=== PATIENT | female | born 1955 | race Caucasian/White ===

== ENCOUNTER 2020-11-24 21:25 | Inpatient (IN) | payer MEDICARE, MEDICAID, SELFPAY ==
[2020-11-24 21:25] VITALS: BP 143/84; PULSE 109; RESP 15; TEMP 36.8; O2SAT 95; BMI 32.5
[2020-11-24 21:32] VITALS: BP 143/84; PULSE 107; RESP 18; TEMP 36.9; O2SAT 94
--- NOTE | 2020-11-24 22:13 | ED.RN ---
patient arrives to ED covered in dirt and possibly feces. Pt appears unwell, unbathed, and unable to take care of self. Pt lives with brother who is unable to take care of patient either. Pt has multiple open sores to b/l lower legs along with redness and swelling.
--- NOTE | 2020-11-24 22:18 | CT_ITS ---
EXAMINATION : Head CT w/out contrast HISTORY : confusion COMPARISON : None. TECHNIQUE : Multiple contiguous axial images were obtained from the skull base to the vertex without intravenous contrast. A radiation dose optimization technique was used for this scan. FINDINGS : The ventricles and sulci are normal in size. There is no evidence for acute intracranial hemorrhage, mass effect, or midline shift. There is no extra-axial fluid collection. There is normal austin-white differentiation, without CT evidence of acute ischemia or infarct. The skull base and calvarium are unremarkable. The orbits are unremarkable. The paranasal sinuses are clear. The mastoid air cells are well-aerated. The soft tissues are unremarkable. CT/Brain/Head without Contrast IMPRESSION: No acute intracranial abnormality. Electronically Signed: Mookie Mauricio MD at 23:17 EDT Tel , Service support ,
--- NOTE | 2020-11-24 22:19 | EKG12_ITS ---
Test Reason : DYSRHYTHMIA Blood Pressure : / mmHG Vent. Rate : 096 BPM Atrial Rate : 096 BPM P-R Int : 166 ms QRS Dur : 078 ms QT Int : 354 ms P-R-T Axes : 064 051 174 degrees QTc Int : 447 ms Sinus rhythm with Premature supraventricular complexes Septal infarct , age undetermined ST & T wave abnormality, consider inferior ischemia ST & T wave abnormality, consider anterolateral ischemia Abnormal ECG Confirmed by WARREN JAFFE, SUNNI ([id number]), purchasing expeditor SONY KIM ([id number]) on 11/29/2020 8:52:17 AM Referred By: VERONICA Confirmed By:SUNNI KELLEY MD
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
[2020-11-24 22:34] LABS: Absolute Lymphocyte Count 0.72 X10^3/uL (0.83-4.51); Absolute Neutrophil Count 6.2 X10^3/uL (2.0-7.7); Basophil# 0.04 X10^3/uL; Basophil% 0.5 % (0-1); Eosinophil# 0.03 X10^3/uL; Eosinophils% 0.4 % (0-5); Hematocrit 39.3 % (37-47); Hemoglobin 11.8 g/dL (12.0-15.0); Lymphocyte # 0.72 X10^3/ul (0.83-4.51); Lymphocyte % 9.4 % (19-41); Mean Corpuscular Hgb 28.1 pg (27.0-32.0); Mean Corpuscular Volume 93.6 fL (81-99); Mean Platelet Vol. 10.1 fl (6.2-12.0); Monocyte# 0.61 X10^3/uL; NRBC Flagged by Analyzer 0 % (0-5); Neutrophil # 6.24 X10^3/uL (2.7-7.7); Neutrophil % 81.3 % (47-70); Platelet Count 230 K/mm3 (150-450); RBC Distribution Width CV 16.7 % (11.6-14.6); RBC Distribution Width SD 56.4 fl (35.1-43.9); White Blood Count 7.7 K/mm3 (4.4-11.0)
[2020-11-24 22:40] VITALS: PULSE 97; RESP 24; RESP 26; O2SAT 92
[2020-11-24] MEDS: 0.9% Normal Saline 1,000 ML 1000 ML IV (22:40)
[2020-11-24] MEDS: Ipratropium/Albuterol Sulfate 3 ML AMPUL.NEB INHALATION (22:40)
[2020-11-24 22:55] LABS: ALB/GLOB Ratio 0.7 RATIO (0.9-2.4); AST(SGOT) 19 U/L (15-37); Alanine Aminotransfer ALT/SGPT 15 U/L (13-56); Albumin, Serum 2.9 g/dL (3.2-5.0); Alkaline Phosphatase 99 U/L (45-117); Anion Gap 9 (5-15); BUN 6 mg/dL (7-18); BUN/Creat Ratio 8.2 RATIO (10-20); Calcium,Total 8.7 mg/dL (8.5-10.1); Chloride 103 mmol/L (98-107); Creatinine, Serum 0.74 mg/dL (0.55-1.02); EST Glomerular Filtration Rate 84 mL/min (>60); Est Glom Filt Rate - Afr Amer 101 mL/min (>60); Estimated Creatinine Clearance 43.18 ml/min; Glucose 124 mg/dL (74-106); Protein, Total 6.9 g/dL (6.4-8.2); Sodium Level 139 mmol/L (136-145)
[2020-11-24 22:58] LABS: Troponin-I HS 75.2 pg/mL (3.0-53.7)
--- NOTE | 2020-11-24 23:12 | RAD_ITS ---
STUDY: X-RAY CHEST REASON FOR EXAM: Female, 65 years old. COPD TECHNIQUE: Single AP portable view of the chest. COMPARISON: None. FINDINGS: The lungs are clear and expanded. There is no demonstrated pleural abnormality. Normal size heart. Prior sternotomy. Normal mediastinum and grupo. Normal visualized pulmonary arteries. Normal visualized aortic arch and descending thoracic aorta. Normal visualized thoracic spine. Normal visualized ribs, clavicles, and shoulders. There is no demonstrated abnormality of the visualized soft tissue structures of the upper abdomen. RAD/Chest 1 View (Portable) IMPRESSION: Normal x-ray examination of the chest. Electronically Signed: Micaela Maradiaga MD at 23:46 EDT Tel , Service support ,
--- NOTE | 2020-11-24 23:12 | RAD_ITS ---
STUDY: X-RAY - RIGHT TIBIA AND FIBULA REASON FOR EXAM: Female, 65 years old. ulcer, ?osteo TECHNIQUE: AP and lateral view(s) of the tibia and fibula were obtained. COMPARISON: None. FINDINGS: Normal visualized tibia. Normal visualized fibula. The soft tissue structures are unremarkable. RAD/Tibia & Fibula 2 Views IMPRESSION: Normal x-ray examination of the tibia and fibula. Electronically Signed: Micaela Maradiaga MD at 23:46 EDT Tel , Service support ,
[2020-11-24 23:13] LABS: Lactic Acid 2.5 mmol/L (0.4-1.9)
--- NOTE | 2020-11-24 23:53 | EKG12_ITS ---
Test Reason : DYSRHYTHMIA Blood Pressure : / mmHG Vent. Rate : 098 BPM Atrial Rate : 098 BPM P-R Int : 152 ms QRS Dur : 084 ms QT Int : 348 ms P-R-T Axes : 060 049 189 degrees QTc Int : 444 ms Normal sinus rhythm Septal infarct , age undetermined ST & T wave abnormality, consider inferior ischemia ST & T wave abnormality, consider anterolateral ischemia Abnormal ECG Confirmed by WARREN JAFFE, SUNNI ([id number]), school photograph editor SONY KIM ([id number]) on 11/29/2020 8:55:03 AM Referred By: VERONICA Confirmed By:SUNNI KELLEY MD
[2020-11-25] VITALS (29 sets, daily range): BP systolic 92–169; BP diastolic 71–119; PULSE 74–100; RESP 14–28; TEMP 36–36.7; O2SAT 90–98; BMI 31.4
[2020-11-25 00:09] LABS: Mucous, Urine 0 SEEN /hpf (<or=2+); Red Blood Cells-Urine 0 SEEN /hpf (0-5)
[2020-11-25 00:10] LABS: Color, Urine Yellow (Yellow); Glucose, Dipstick Normal (Normal); Ketone-Dipstick Negative (Negative); Leukocyte Esterase-Dipstick 25 /ul (Negative); Nitrite-Dipstick Negative (Negative); Occult Blood-Urine 25 /ul (Negative); Protein-Dipstick 30 mg/dl (Negative); Urine Bilirubin Dipstick Negative (Negative); Urine Clarity Clear (Clear); Urine Urobilinogen 12 mg/dl (Normal)
[2020-11-25 00:21] LABS: Bacteria 3+ /hpf (None Seen); Squamous Epithelial Cells - UA 0-5 SEEN /hpf (5-10); White Blood Cells 5-10 SEEN /hpf (0-5)
[2020-11-25 00:42] LABS: Troponin-I HS 256.1 pg/mL (3.0-53.7)
--- NOTE | 2020-11-25 01:10 | HP.PCM_ITS ---
Documented by User: DARIANA Bright 11/25/20 01:31 HPI - General General Date of Admission: 11/25/20 Date of Service: 11/25/20 Chief Complaint: Confusion, debility HPI Narrative NEMESIO SONG, is a 65 F who presents from home with family concerned due to patient's worsening confusion and weakness. Patient's family states that patient has been getting increasingly weak and confused over the past 2 months however today she was talking to her parents who have been for years. Patient is alert to self only and unable to verbalize symptoms or concerns. Patient's family reports they do not know how long patient has had wounds to her legs as she has refused to leave the house in the past month or so. Patient's family reports that she is not currently taking any medications and has not seen a doctor since her CABG approximately 15 years ago. [facility] Medical History Diabetes mellitus type 2 in obese Hypertension Home Medications NK 11/24/20 [History Last Taken Unknown] Allergy/AdvReac Type Severity Reaction Status Date / Time No Known Allergies Allergy Verified 11/24/20 21:32 Surgical History History of coronary artery bypass graft Social History Smoking Status: Current some day smoker tobacco type: cigarettes alcohol intake: current alcohol intake frequency: holidays/special occasions only substance use type: does not use ROS Review of Systems ROS Unobtainable: due to mental status Vital Signs Vital Signs Vital Signs: 11/24/20 21:25 11/24/20 21:32 11/24/20 22:12 Temperature 98.3 F 98.4 F Temperature Source Temporal Temporal Pulse Rate 109 H 107 H Respiratory Rate 15 18 Respiratory Effort Normal Non-Labored Respiratory Depth Respiratory Pattern Tachypnea Blood Pressure 143/84 H 143/84 H Blood Pressure Mean 103 103 Pulse Ox 95 94 Oxygen Delivery Method Room Air Room Air 11/24/20 22:40 11/25/20 00:00 Temperature 98.1 F Temperature Source Temporal Pulse Rate 97 95 Respiratory Rate 26 H 18 Respiratory Effort Short of Breath Respiratory Depth Shallow Respiratory Pattern Tachypnea Blood Pressure 140/92 H Blood Pressure Mean 108 Pulse Ox 92 98 Oxygen Delivery Method Room Air Room Air Weight Weight: 178 lb 5.663 oz Body Mass Index (BMI) 32.5 Physical Exam Const General Appearance: disheveled, ill appearing Positive for chronically and appears older than stated age Orientation / Consciousness: oriented to person Exam Limitations: altered mental status HEENT normocephalic and head/scalp atraumatic Neck supple and no JVD General: trachea midline Resp normal respiratory effort and normal air movement Effort and Inspection: tachypneic Auscultation: wheezes expiratory wheezes and throughout Cardio regular rate, regular rhythm, S1 normal heart sound and S2 normal heart sound GI normal to inspection, nondistended, normoactive bowel sounds and soft to palpation Extremity normal to inspection and full ROM Skin Skin Narrative: Patient has multiple scabbed wounds to bilateral legs in various stages of healing General Skin Exam: dry skin Wounds: wounds noted Neuro no focal motor deficits and no sensory deficits noted Speech: speech abnormal Details: Positive for garbled Motor Exam: general weakness Psych Appearance: unkempt and disheveled Thought Process: confused Thought Content: hallucination(s) Positive for visual (Patient is speaking parents who have been for years) Results Lab / Micro Data Result Diagrams: 11/24/20 21:55 11/24/20 21:55 Labs: Laboratory Results - last 24 hr 11/24/20 00:15: Troponin I High Sens 256.1 H* 11/24/20 21:55: WBC 7.7, RBC 4.20, Hgb 11.8 L, Hct 39.3, MCV 93.6, MCH 28.1, MCHC 30.0 L, RDW Std Deviation 56.4 H, RDW Coeff of [place] 16.7 H, Plt Count 230, MPV 10.1, Immature Gran % (Auto) 0.400, Neut % (Auto) 81.3 H, Lymph % (Auto) 9.4 L, [place] % (Auto) 8.0, Eos % (Auto) 0.4, Baso % (Auto) 0.5, Absolute Neuts (auto) 6.2, Absolute Lymphs (auto) 0.72 L, Nucleated RBC % 0 11/24/20 21:55: Sodium 139, Potassium 3.0 L, Chloride 103, Carbon Dioxide 27.0, Anion Gap 9, BUN 6 L, Creatinine 0.74, Estim Creat Clear Calc 43.18, Est GFR (MDRD) Af Amer 101, Est GFR (MDRD) Non-Af 84, BUN/Creatinine Ratio 8.2 L, Glucose 124 H, Calcium 8.7, Total Bilirubin 1.70 H, AST 19, ALT 15, Alkaline Phosphatase 99, Troponin I High Sens 75.2 H*, Total Protein 6.9, Albumin 2.9 L, Globulin 4.0, Albumin/Globulin Ratio 0.7 L, TSH 1.70 11/24/20 21:55: Lactic Acid 2.5 H* 11/24/20 22:19: Urine Color Yellow, Urine Clarity Clear, Urine pH 6.0, Ur Specific [place] 1.010, Urine Protein 30 H, Urine Glucose (UA) Normal, Urine Ketones Negative, Urine Occult Blood 25 H, Urine Nitrite Negative, Urine Bilirubin Negative, Urine Urobilinogen 12 H, Ur Leukocyte Esterase 25 H, Urine RBC 0 SEEN, Urine WBC 5-10 SEEN, Ur Squamous Epith Cells 0-5 SEEN, Urine Bacteria 3+, Urine Mucus 0 SEEN Micro: Microbiology 11/24/20 22:30 Mucosa - Nose SARS-CoV-2 Antigen (Rapid) - Final Radiology Impression Brain CT 11/24/20 22:18 IMPRESSION: No acute intracranial abnormality. Electronically Signed: Mookie Mauricio MD at 23:17 EDT Tel , Service support , Chest X-Ray 11/24/20 23:12 IMPRESSION: Normal x-ray examination of the chest. Electronically Signed: Micaela Maradiaga MD at 23:46 EDT Tel , Service support , Tibia/Fibula X-Ray 11/24/20 23:12 IMPRESSION: Normal x-ray examination of the tibia and fibula. Electronically Signed: Micaela Maradiaga MD at 23:46 EDT Tel , Service support , Assessment & Plan Assessment/Plan (1) Cellulitis of leg, right: (2) Debility: (3) Sepsis: QUALIFIERS: Sepsis acute organ dysfunction status: without acute organ dysfunction Sepsis type: sepsis due to unspecified organism Qualified Code(s): A41.9 - Sepsis, unspecified organism PLAN: 1. Sepsis secondary to cellulitis of the right leg -Admit to ICU for continuous cardiac and pulse ox monitoring -Vancomycin and Zosyn ordered, first dose Vanco given in ER -Blood cultures pending, wound culture ordered -Consult wound nurse -Consult infectious disease -PT OT ST to eval and treat -N.p.o. at this time due to swallowing difficulty and weakness -Elevate bilateral lower extremities when in bed or chair -O2 per protocol -CBC, BMP, TSH ordered for a.m. -Obtain magnesium level 2. Debility -Per patient family patient has been declining for some time however is got increasingly worse in the past month or so -Family reports patient has not had any medical evaluation or follow-up following CABG 15 years ago, continues to smoke. -PT/OT to eval and treat -Case management consulted for discharge planning 3. Hypokalemia -Patient received potassium replacement in ER -BMP ordered for a.m. 4. Hypertension -Patient not currently on medication regimen -Vital signs per protocol trend BP -As needed hydralazine ordered 5. Diabetes mellitus type 2 -Family reports a history however patient not taking any medication or checking blood sugars -Every 6 hour blood sugars with sliding scale insulin ordered 6. History of CABG -CABG done approximately 15 years ago, patient has had no follow-up since 7. Tobacco use -Inpatient smoking cessation ordered DVT prophylaxis-subcu Lovenox This patient was seen by Marbella Neumann NP-C under the supervision of Dr. Hull. Documented by User: Dr. Marques Hull MD 11/25/20 03:11 HPI - General General Date of Admission: 11/25/20 Date of Service: 11/25/20 Chief Complaint: Altered mental status, leg wounds HPI Narrative This is a 65-year-old female with multiple comorbidities, noncompliant, active smoker was brought to ED for altered mental status. As per EMS, respiratory rate was shallow and fast 30/min, progressively getting confused, lethargic and obtunded for last 3 months. She has multiple wounds and crust on both legs and one on the chest probably from cigarette butt. Entered protective services also been contacted from ER. As per his brother, does not have energy, does not leave home airways and is poor. In the ED, she was found tachycardic, tachypneic respiratory rate 24 to 26/min, but not hypoxic. There is no leukocytosis but neutrophil count is 81%. Mild hypokalemia. Lactic acid 2.5. Total bilirubin 1.7, troponin elevated 75.2. Severe cellulitis of both lower legs, worse in the right leg from multiple wounds. She was given 1 dose of vancomycin in the ED further admitted. [facility] Medical History Diabetes mellitus type 2 in obese Hypertension Home Medications NK 11/24/20 [History Last Taken Unknown] Allergy/AdvReac Type Severity Reaction Status Date / Time No Known Allergies Allergy Verified 11/24/20 21:32 Surgical History History of coronary artery bypass graft Social History Smoking Status: Current some day smoker tobacco type: cigarettes alcohol intake: current alcohol intake frequency: holidays/special occasions only substance use type: does not use Physical Exam Narrative General: Confused, disoriented, obtunded. HEENT: Atraumatic, bilateral legal blindness. Seems bilateral cataract with opacity lens Oral: Oral mucosa dry. No Gingival or Mucosal Lesions/ Ulcerations Neck: Supple, No JVD, Negative Carotid Bruits Lungs: Air entry diminished in bilateral lung bases. Bilateral expiratory rhonchi. Cardiovascular: CABG scar talat. Regular rate, Regular Rhythm, Normal S1, Normal S2, systolic murmur over LLSB. Abdomen: Bowel Sounds Present, Soft, Non Tender, Non-Distended : No renal angle tenderness. No suprapubic tenderness. Extremities: No edema, Capillary Refill Less than 3 Seconds Skin: Multiple wounds present, worse in right leg, chronic, scab, minimal discharge. 1 scab is in chest. Both legs are warm consistent with cellulitis Musculoskeletal: Moderate atrophy of muscles of extremities. ROM restricted Neurological: Cranial nerves II-XII grossly intact, DTR 2+/4 and Symmetrical, Neuro grossly intact Psych/Mental Status: Obtunded. Results Lab / Micro Data Result Diagrams: 11/24/20 21:55 11/24/20 21:55 Assessment & Plan Assessment/Plan (1) Sepsis: QUALIFIERS: Sepsis acute organ dysfunction status: without acute organ dysfunction Sepsis type: sepsis due to unspecified organism Qualified Code(s): A41.9 - Sepsis, unspecified organism PLAN: This patient was seen in conjunction with ESTIVEN Tyson. I have independently interviewed and examined the patient and reviewed pertinent history, examination findings, laboratory and plan of management. I have reviewed the note and agree with the documented findings with the few additional points. In brief, patient is 65-year-old female, functionally debilitated, noncompliant was brought into ER for altered mental status and was found to have multiple wounds with cellulitis of lower legs. She has tachycardia, tachypnea, elevated total bilirubin and lactic acidosis consistent with severe sepsis from cellulitis and leg ulcers. IV fluid normal saline as per 30 mils per KG fluid bolus protocol. Started on broad-spectrum antibiotic IV vancomycin and Zosyn. ID consult. Wound care nurse consulted. Patient is active smoker but unclear whether she has COPD. Bronchodilator, DuoNeb every 6 hourly as needed for shortness of breath Coronary artery status post CABG: Patient is not on any medication at home and does not follow physician. Diabetes mellitus type 2, hypertension, mild hypokalemia: Potassium replaced. As mentioned above. I have discussed my assessment with ESTIVEN Tyson and orders have been reviewed. Living will/advanced directive/end of life care: Patient does not have living will or advanced directive. Discussed with the patient's brother near the bedside. He is to complete paperwork for power of consumer attorney for health. After discussion of benefits/risks procedures involved with full code, DNR CC arrest and DNR CC, his brother opted for DNR-CC Arrest with no intubation As per patient's brother, she does not want artificial life support including intubation, tube feed, ventilator and/chest compression, central venous catheter, vasopressor and DC shock if needed Total time spent in [id number] encounter in discussion of advanced directive 16 minutes. Charges/Coding Visit Charges Inpatient E&M: 28899 Init Hosp L3 Procedures Hospitalists Procedures: 14090 Advncd Care Plan 30 Min
[2020-11-25 01:20] LABS: Magnesium 1.7 mg/dL (1.6-2.6)
[2020-11-25] MEDS: Aspirin 81 MG TAB.CHEW 324 MG PO (01:20)
[2020-11-25] MEDS: Potassium Chloride Oral Tablet 20 MEQ PO (01:23)
[2020-11-25 02:30] LABS: Reflex Lactate? Y
[2020-11-25] MEDS: 0.9% Normal Saline 1,000 ML 100 ML IV ×3 (02:48→18:25)
--- NOTE | 2020-11-25 02:53 | PCM.RX.CS ---
Consult Pharmacy has been consulted to manage selected antiobiotic: Vancomycin Type of Consult: New start Suspected Infection: Sepsis Labs: Sodium 139 mmol/L (136-145) 11/24/20 21:55 Potassium 3.0 mmol/L (3.5-5.1) L 11/24/20 21:55 Chloride 103 mmol/L (98-107) 11/24/20 21:55 Carbon Dioxide 27.0 mmol/L (21.0-32.0) 11/24/20 21:55 Anion Gap 9 (5-15) 11/24/20 21:55 BUN 6 mg/dL (7-18) L 11/24/20 21:55 Creatinine 0.74 mg/dL (0.55-1.02) 11/24/20 21:55 Est GFR (MDRD) Af Amer 101 mL/min (>60) 11/24/20 21:55 Est GFR (MDRD) Non-Af 84 mL/min (>60) 11/24/20 21:55 BUN/Creatinine Ratio 8.2 RATIO (10-20) L 11/24/20 21:55 Glucose 124 mg/dL (74-106) H 11/24/20 21:55 Microbiology: Microbiology 11/24/20 22:30 Mucosa - Nose SARS-CoV-2 Antigen (Rapid) - Final Weight used for dosin.9 kg Estimated Creatinine Clearance: 67 Goal Trough: 10-15 mcg/mL Pharmacy Plan for Drug Dosing: Pharmacy Service will continue to monitor and adjust dosing as required. Medications Vancomycin HCl 750 mg/ Sodium (Chloride) 265 mls @ 250 mls/hr IV Q12H JOE Discontinued Medications Vancomycin HCl 1,250 mg/ (Sodium Chloride) 275 mls @ 167 mls/hr IV X1 ONE Stop: 11/25/20 00:05 Last Admin: 11/24/20 23:12 Dose: 167 mls/hr Documented by: Follow-Up Labs: Trough Vancomycin Labs to be done on [date and time ordered]: 11/26 @ 1030
[2020-11-25 03:24] LABS: CPK Total, Creatine Kinase 99 U/L (26-192)
[2020-11-25] MEDS: 0.9% Normal Saline 1,000 ML 999 ML IV ×2 (03:41→05:55)
[2020-11-25 03:48] LABS: International Normalized Ratio 1.6; Prothrombin Time (Protime)PT. 17.9 SECONDS (11.7-14.9)
[2020-11-25 03:49] LABS: Partial Thromboplast Time 33.5 Seconds (24.1-36.2)
[2020-11-25 04:27] LABS: Lactic Acid 2.1 mmol/L (0.4-1.9)
[2020-11-25 05:54] LABS: Absolute Lymphocyte Count 1.08 X10^3/uL (0.83-4.51); Absolute Neutrophil Count 4.4 X10^3/uL (2.0-7.7); Basophil# 0.03 X10^3/uL; Basophil% 0.5 % (0-1); Eosinophil# 0.03 X10^3/uL; Eosinophils% 0.5 % (0-5); Hematocrit 36.1 % (37-47); Hemoglobin 10.7 g/dL (12.0-15.0); Lymphocyte # 1.08 X10^3/ul (0.83-4.51); Lymphocyte % 17.4 % (19-41); Mean Corp Hgb Conc 29.6 g/dL (32-36); Mean Corpuscular Hgb 27.6 pg (27.0-32.0); Mean Platelet Vol. 9.5 fl (6.2-12.0); Monocyte# 0.72 X10^3/uL; Monocyte% 11.6 % (0-10); NRBC Flagged by Analyzer 0 % (0-5); Neutrophil # 4.35 X10^3/uL (2.7-7.7); Neutrophil % 69.8 % (47-70); Platelet Count 181 K/mm3 (150-450); RBC Distribution Width CV 16.7 % (11.6-14.6); RBC Distribution Width SD 56.6 fl (35.1-43.9); Red Blood Count 3.88 M/mm3 (4.2-5.4); White Blood Count 6.2 K/mm3 (4.4-11.0)
[2020-11-25 06:29] LABS: M R Staph aureus DNA By PCR Negative (Negative); Probe Check PASS; Specimen Processing Control PASS; Staph aureus DNA By PCR POSITIVE (Negative)
[2020-11-25] MEDS: Potassium Chloride 10mEq/100mL 10 MEQ/100 ML IV.SOLN. 100 MEQ IV BOLUS ×2 (06:36→08:15)
[2020-11-25] MEDS: Ipratropium/Albuterol Sulfate 3 ML AMPUL.NEB INHALATION ×3 (06:50→19:49)
[2020-11-25 06:57] LABS: Anion Gap 5 (5-15); BUN 6 mg/dL (7-18); BUN/Creat Ratio 10.7 RATIO (10-20); Calcium,Total 7.8 mg/dL (8.5-10.1); Chloride 110 mmol/L (98-107); Creatinine, Serum 0.56 mg/dL (0.55-1.02); EST Glomerular Filtration Rate 114 mL/min (>60); Est Glom Filt Rate - Afr Amer 138 mL/min (>60); Estimated Creatinine Clearance 43.18 ml/min; Glucose 100 mg/dL (74-106); Potassium 3.4 mmol/L (3.5-5.1); Sodium Level 142 mmol/L (136-145); Thyroid Stim Hormone (TSH) 1.72 uIU/mL (0.358-3.74); Troponin-I HS 1446.4 pg/mL (3.0-53.7)
--- NOTE | 2020-11-25 07:08 | CON.PCM.CC_ITS ---
Assessment & Plan Assessment/Plan (1) Sepsis: QUALIFIERS: Sepsis acute organ dysfunction status: without acute organ dysfunction Sepsis type: sepsis due to unspecified organism Qualified Code(s): A41.9 - Sepsis, unspecified organism PLAN: RECOMMENDATIONS: 1. Continue gentle IV fluid hydration for now. 2. Continue antimicrobials, pending infectious work-up. 3. Wound care consultation. 4. Echocardiogram. Cardiology consultation is pending. 5. Potassium repletion as ordered. 6. Physical therapy and dietary evaluations. 7. Attempt to encourage incentive spirometer use while in bed and mobilize patient as tolerated. 8. The patient is medically stable for transfer out of the intensive care unit. Will sign off from a critical care perspective. IMPRESSIONS: 1. Soft tissue wound/lower extremity cellulitis Continue current supportive measures including antimicrobials, pending finalized cultures. The patient will be continued on gentle IV fluid hydration for now. She remains hemodynamically stable. Recommend wound care consultation. Infectious diseases was previously consulted. 2. Troponin elevation/history of coronary artery disease status post CABG Cardiology has been consulted to evaluate the patient. She currently denies any chest pain. Echocardiogram is pending. 3. Chronic tobacco dependency The patient does have an extensive smoking history and it is certainly plausible that she may have some component of underlying obstructive lung disease. However, she has never completed PFTs, nor has she been evaluated by vegetable inspector. This will need to be further worked up on an outpatient basis. In the interim, bronchodilators can be utilized while admitted to the hospital. 4. Hypokalemia Electrolyte repletion as ordered. Recheck levels in the morning. 5. Anemia/generalized debility and failure to thrive Complicates care, management, recovery and prognosis. The patient will require evaluation by both physical therapy and nutrition services. This note was generated with [employer] dictation software. It may contain incorrect words, spelling, and punctuation that were not noted in checking the note before signing. HPI Consult Data Date of Consult: 11/26/20 HPI Narrative Reason for Consultation: Severe sepsis from leg wounds/cellulitis HPI Narrative: The patient is a 65-year-old female, with a history as outlined below, who presented to the emergency department on November 24 with a multitude o f different complaints including altered mentation, progressive vision loss, generalized weakness and failure to thrive. History pertinent to the patient's hospitalization was very difficult to elicit from the patient, as she is currently only alert and oriented to person. She was able to confirm to me that she smokes 2 packs of cigarettes per day. However, she denies any shortness of breath. According to documentation, the patient also has a history of coronary artery disease status post CABG, but is not currently on any outpatient medications. She appears to have exceedingly poor insight and outpatient medical follow-up. On presentation to the emergency department, the patient was noted to be afebrile and hemodynamically stable. She was maintaining appropriate oxygen saturations on room air. Laboratory evaluation revealed no evidence of a leukocytosis. Coagulation profile was within normal limits. Chemistry profile was notable for a potassium of 3.0, lactate of 2.5, total bilirubin of 1.7 and troponin of 256. TSH was within normal limits. MRSA screen was positive. Head CT was unremarkable. Chest x-ray demonstrated no acute cardiopulmonary process. Rapid coronavirus antigen testing was negative. The patient received supplemental IV fluid hydration and was placed on broad-spectrum antimicrobials. The patient was subsequently admitted to the medical intensive care unit for further management. [facility] Medical History (Updated 11/25/20 @ 16:14 by Anay MARLEY PA) CAD (coronary artery disease) Cardiomyopathy, ischemic Diabetes mellitus type 2 in obese Hypertension Home Medications NK 11/24/20 [History Last Taken Unknown] Allergy/AdvReac Type Severity Reaction Status Date / Time No Known Allergies Allergy Verified 11/24/20 21:32 Surgical History History of coronary artery bypass graft Social History Smoking Status: Current some day smoker tobacco type: cigarettes alcohol intake: current alcohol intake frequency: holidays/special occasions only substance use type: does not use ROS ROS Narrative Somewhat limited due to the patient's mentation. Constitutional Constitutional: Reports fatigue and weakness Eyes Eyes: Reports change in vision ENT HEENT: Denies loss taste/smell or nasal congestion Cardiovascular Cardiovascular: Denies chest pain or dyspnea Respiratory/Chest Respiratory/Chest: Denies cough or hemoptysis Gastrointestinal Gastrointestinal: Denies abdominal pain, diarrhea, nausea or vomiting Integumentary Integumentary: Reports rash and wounds Neurologic Neurologic: Reports confusion Psychiatric Psychiatric: Denies anxiety or depression Endocrine Endocrinology: Reports fatigue Hematologic/Lymphatic Hematologic/Lymphatic: Denies easy bleeding or easy bruising Physical Exam Const alert and no apparent distress Constitutional Narrative: Chronically ill in appearance and unkempt. Appears older than stated age. Orientation / Consciousness: confused Nutritional Appearance: obese HEENT normocephalic and head/scalp atraumatic Teeth and Gingiva: poor dentition Eyes PERRL and EOMs intact bilaterally Neck supple General: trachea midline Resp Effort and Inspection: tachypneic Auscultation: diminished lung sounds; Negative for rales, rhonchi or wheezes Cardio regular rate and regular rhythm GI normal to inspection, nondistended, normoactive bowel sounds Extremity no clubbing, cyanosis or edema Skin Wound Narrative: Multiple wounds noted on extremities in various stages of healing. Neuro no focal motor deficits Psych Appearance: unkempt Activity / Motor Behavior: restless Lab / Micro Data Result Diagrams: 11/25/20 05:45 11/25/20 06:20 Labs: Laboratory Results - last 24 hr 11/24/20 00:15: Troponin I High Sens 256.1 H* 11/24/20 21:55: WBC 7.7, RBC 4.20, Hgb 11.8 L, Hct 39.3, MCV 93.6, MCH 28.1, MCHC 30.0 L, RDW Std Deviation 56.4 H, RDW Coeff of [place] 16.7 H, Plt Count 230, MPV 10.1, Immature Gran % (Auto) 0.400, Neut % (Auto) 81.3 H, Lymph % (Auto) 9.4 L, [place] % (Auto) 8.0, Eos % (Auto) 0.4, Baso % (Auto) 0.5, Absolute Neuts (auto) 6.2, Absolute Lymphs (auto) 0.72 L, Nucleated RBC % 0 11/24/20 21:55: Sodium 139, Potassium 3.0 L, Chloride 103, Carbon Dioxide 27.0, Anion Gap 9, BUN 6 L, Creatinine 0.74, Estim Creat Clear Calc 43.18, Est GFR (MDRD) Af Amer 101, Est GFR (MDRD) Non-Af 84, BUN/Creatinine Ratio 8.2 L, Glucose 124 H, Calcium 8.7, Total Bilirubin 1.70 H, AST 19, ALT 15, Alkaline Phosphatase 99, Troponin I High Sens 75.2 H*, Total Protein 6.9, Albumin 2.9 L, Globulin 4.0, Albumin/Globulin Ratio 0.7 L, TSH 1.70 11/24/20 21:55: Lactic Acid 2.5 H* 11/24/20 22:19: Urine Color Yellow, Urine Clarity Clear, Urine pH 6.0, Ur Specific [place] 1.010, Urine Protein 30 H, Urine Glucose (UA) Normal, Urine Ketones Negative, Urine Occult Blood 25 H, Urine Nitrite Negative, Urine Bilirubin Negative, Urine Urobilinogen 12 H, Ur Leukocyte Esterase 25 H, Urine RBC 0 SEEN, Urine WBC 5-10 SEEN, Ur Squamous Epith Cells 0-5 SEEN, Urine Bacteria 3+, Urine Mucus 0 SEEN 11/25/20 00:15: Magnesium 1.7 11/25/20 00:15: Total Creatine Kinase 99 11/25/20 02:10: S.aureus Protein A PCR POSITIVE H, MRSA (PCR) Negative 11/25/20 03:25: Lactic Acid 2.1 H* 11/25/20 03:25: PT 17.9 H, INR 1.6, APTT 33.5 11/25/20 05:13: WBC Cancelled, Corrected WBC Cancelled, RBC Cancelled, Hgb Cancelled, Hct Cancelled, MCV Cancelled, MCH Cancelled, MCHC Cancelled, RDW Std Deviation Cancelled, RDW Coeff of [place] Cancelled, Plt Count Cancelled, MPV Cancelled, Immature Gran % (Auto) Cancelled, Neut % (Auto) Cancelled, Lymph % (Auto) Cancelled, [place] % (Auto) Cancelled, Eos % (Auto) Cancelled, Baso % (Auto) Cancelled, Absolute Neuts (auto) Cancelled, Absolute Lymphs (auto) Cancelled, Total Counted Cancelled, Neutrophils % (Manual) Cancelled, Band Neutrophils % Cancelled, Lymphocytes % (Manual) Cancelled, Monocytes % (Manual) Cancelled, Eosinophils % (Manual) Cancelled, Basophils % (Manual) Cancelled, Metamyelocytes % Cancelled, Myelocytes % Cancelled, Promyelocytes % Cancelled, Blast Cells % Cancelled, Plasma Cell % (Manual) Cancelled, Other Cells % Cancelled, Nucleated RBC % Cancelled, Nucleated RBCs/100 WBC Cancelled, Differential Comment Cancelled, Diff Path Review Cancelled, Hypersegmented Neuts Cancelled, Atypical Lymphocytes Cancelled, Reactive Lymphocytes Cancelled, Smudge Cells Cancelled, Toxic Granulation Cancelled, Toxic Vacuolation Cancelled, Dohle Bodies Cancelled, Sosa Rods Cancelled, Platelet Estimate Cancelled, Plt Morphology Comment Cancelled, RBC Morphology Cancelled, Polychromasia Cancelled, Hypochromasia Cancelled, Poikilocytosis Cancelled, Basophilic Stippling Cancelled, Anisocytosis Cancelled, Microcytosis Cancelled, Macrocytosis Cancelled, Spherocytes Cancelled, Sickle Cells Cancelled, Target Cells Cancelled, Tear Drop Cells Cancelled, Ovalocytes Cancelled, Stomatocytes Cancelled, [place] Bodies Cancelled, Christina Cells Cancelled, Bite Cells Cancelled, Crenated Cell Cancelled, Acanthocytes (Spur) Cancelled, Rouleaux Cancelled, Schistocytes Cancelled 11/25/20 05:13: Sodium Cancelled, Potassium Cancelled, Chloride Cancelled, Carbon Dioxide Cancelled, Anion Gap Cancelled, BUN Cancelled, Creatinine Cancelled, Estim Creat Clear Calc Cancelled, Est GFR (MDRD) Af Amer Cancelled, Est GFR (MDRD) Non-Af Cancelled, BUN/Creatinine Ratio Cancelled, Glucose Cancelled, Calcium Cancelled, TSH Cancelled 11/25/20 05:13: Troponin I High Sens Cancelled 11/25/20 05:45: WBC 6.2, RBC 3.88 L, Hgb 10.7 L, Hct 36.1 L, MCV 93.0, MCH 27.6, MCHC 29.6 L, RDW Std Deviation 56.6 H, RDW Coeff of [place] 16.7 H, Plt Count 181, MPV 9.5, Immature Gran % (Auto) 0.200, Neut % (Auto) 69.8, Lymph % (Auto) 17.4 L , [place] % (Auto) 11.6 H, Eos % (Auto) 0.5, Baso % (Auto) 0.5, Absolute Neuts (auto) 4.4, Absolute Lymphs (auto) 1.08, Nucleated RBC % 0 11/25/20 06:20: Sodium 142, Potassium 3.4 L, Chloride 110 H, Carbon Dioxide 27.0, Anion Gap 5, BUN 6 L, Creatinine 0.56, Estim Creat Clear Calc 43.18, Est GFR (MDRD) Af Amer 138, Est GFR (MDRD) Non-Af 114, BUN/Creatinine Ratio 10.7, Glucose 100, Calcium 7.8 L, Troponin I High Sens 1446.4 H*, TSH 1.72 Micro: Microbiology 11/24/20 22:30 Mucosa - Nose SARS-CoV-2 Antigen (Rapid) - Final Radiology Impression Brain CT 11/24/20 22:18 IMPRESSION: No acute intracranial abnormality. Electronically Signed: Mookie Mauricio MD at 23:17 EDT Tel , Service support , Chest X-Ray 11/24/20 23:12 IMPRESSION: Normal x-ray examination of the chest. Electronically Signed: Micaela Maradiaga MD at 23:46 EDT Tel , Service support , Tibia/Fibula X-Ray 11/24/20 23:12 IMPRESSION: Normal x-ray examination of the tibia and fibula. Electronically Signed: Micaela Maradiaga MD at 23:46 EDT Tel , Service support , Charges/Coding Visit Charges Inpatient E&M: 31677 Init Hosp L3
--- NOTE | 2020-11-25 07:11 | ECHOCS_ITS ---
Reason For Study: S/P CABG Procedure This was a 2D Doppler, Color Flow transthoracic echocardiogram. The study was technically difficult. Contrast injection was performed. Exam performed portable in ICU/CCU. Left Ventricle Normal LV size. Moderate concentric left ventricular hypertrophy. Severe segmental systolic dysfunction (see wall motion). The estimated ejection fraction is 15 %. Transmitral diastolic flow velocities suggest moderate (stage 2) diastolic dysfunction (pseudonormal pattern). Anterio-Basal: Hypokinetic. Lateral-Basal: Hypokinetic. Posterior-Basal: Hypokinetic. Infero-Basal: Severely Hypokinetic. Basal inferoseptal: Akinetic. Basal anteroseptal: Hypokinetic. Mid-Anterior : Severely Hypokinetic. Mid-Lateral : Severely Hypokinetic. Mid-Posterior: Severely Hypokinetic. Mid-Inferior: Akinetic. Mid-inferoseptal : Severly Hypokinetic. Mid-anteroseptal : Severely Hypokinetic. [place] : Akinetic. Right Ventricle Mildly dilated right ventricle. Moderate global right ventricular systolic dysfunction. Atria The left atrium is mildly enlarged. The right atrium is mildly enlarged. No doppler evidence for ASD. Mitral Valve There is moderate mitral annular calcification. Extension of the mitral annular calcification onto the base of the posterior mitral valve leaflet. Anterior leaflet diffuse mitral valve thickening. Mild-Moderate (1-2+) mitral valve insufficiency. Tricuspid Valve Poor coaptation of the tricuspid valve apparatus. Moderately severe (3+) tricuspid valve insufficiency. Right ventricular systolic pressure estimated to be 43 mmHg. Aortic Valve Trisinus/trileaflet aortic valve. Mild diffuse aortic valve thickening. Mild diffuse aortic valve calcification. Moderate focal aortic valve calcification. Moderate aortic stenosis. Pulmonic Valve The pulmonic valve is not well visualized. Great Vessels The aortic root is not well visualized. Pericardium/Pleural No pericardial effusion. Echo lucency compatible with a pleural effusion. Medication Diluted definity 2ml given slow IV push to enhance endocardial definition. MMode/2D Measurements & Calculations LVIDd: 4.4 cm IVSd: 1.6 cm LVOT diam: 1.9 cm LVIDs: 4.1 cm LVPWd: 1.4 cm RVDd: 4.7 cm FS: 4.9 % LVOT area: 2.7 cm2 LA dimension: 5.1 cm LAV(MOD-bp): 61.6 ml LA A4 area: 20.1 cm2 LAV(MOD-bp) Indexed: 34.5 ml/m2 LAV(MOD-sp2): 63.5 ml LAV(MOD-sp4): 57.4 ml RA A4 area: 15.1 cm2 Time Measurements MV dec time: 0.16 sec Doppler Measurements & Calculations MV E max shane: 123.3 cm/sec Lat Peak E' Shane: 5.7 cm/sec Med Peak E' Shane: 1.7 cm/sec MV A max shane: 106.7 cm/sec E/E' lat: 21.5 E/E' med: 72.1 MV E/A: 1.2 MV V2 max: 126.3 cm/sec MV P1/2t max shane: 126.3 cm/sec Ao V2 max: 254.3 cm/sec MV max P.4 mmHg MV P1/2t: 69.7 msec Ao max P.2 mmHg MV V2 mean: 72.4 cm/sec MV dec slope: 530.2 cm/sec2 Ao V2 mean: 168.0 cm/sec MV mean P.5 mmHg Ao mean P.3 mmHg MV V2 VTI: 39.5 cm MVA(P1/2t): 3.2 cm2 Ao V2 VTI: 56.8 cm MVA(VTI): 1.1 cm2 ANAIS(I,D): 0.74 cm2 ANAIS(V,D): 0.84 cm2 LV V1 max: 79.4 cm/sec SV(LVOT): 42.1 ml PA V2 max: 82.9 cm/sec LV V1 max P.5 mmHg LV V1 mean P.2 mmHg LV V1 mean: 51.2 cm/sec LV V1 VTI: 15.6 cm TR max shane: 316.4 cm/sec TR max P.1 mmHg ECHO/Echo Complete W/ Contrast Interpretation Summary The study was technically difficult. Contrast injection was performed. Severe segmental systolic dysfunction (see wall motion). The estimated ejection fraction is 15 %. Moderate concentric left ventricular hypertrophy. Mildly dilated right ventricle. Moderate global right ventricular systolic dysfunction. The left atrium is mildly enlarged. The right atrium is mildly enlarged. There is moderate mitral annular calcification. Extension of the mitral annular calcification onto the base of the posterior mi tral valve leaflet. Anterior leaflet diffuse mitral valve thickening. Mild-Moderate (1-2+) mitral valve insufficiency. Poor coaptation of the tricuspid valve apparatus. Moderately severe (3+) tricuspid valve insufficiency. Moderate aortic stenosis. Echo lucency compatible with a pleural effusion. Right ventricular systolic pressure estimated to be 43 mmHg. Transmitral diastolic flow velocities suggest diastolic dysfunction (pseudonorm al pattern). Ordering Physician: Yoselyn Araujo Referring Physician: Abimbola PCP Performed By: Torin Nunez RCS
--- NOTE | 2020-11-25 10:40 | CASEMGMT ---
Addendum entered by Wendi Abad 11/25/20 11:30: VM received from July. SonSky, phone # is [phone]. Addendum entered by Wendi Abad 11/25/20 11:26: Per July, pt does not have a PCP and does not see any doctors, stating she hasn't went to see anyone in years. The only medication pt takes @ home is ASA 81 mg BID. Original Note: RN CM NOTE: RN CM to room for initial RN CM assessment. Pt groggy and barely opening her eyes. Pt attempted to talk but only mumbled a few words and then closed her again. TC placed to # listed on demographics as pt's son, Tomasz. Pt's sis-in-law, July, answered and states Tomasz is actually pt's brother, who is her (Mónica's ). Demographics updated in [employer] at this time. July states the following: Pt has not completed any POA paperwork, but states pt just recently informed her (July) that she wanted her to be POA. RN CM explained to July that, unless pt is oriented/thinking clearly that this paperwork could not be completed and pt's NOK (children) would be the decision makers for pt while pt unable to make her own decisions. Pt has 2 children: Son, Sky, and daughter, Thu Loaiza (who has severe Cerebral Palsy and per July is not in any condition to make any decisions) July states she does not have Sky's phone number. She states Sky contacted her (July) last evening via FB. July states she will try and contact Sky via FB to try and get a phone number from him and will call this RN CM back if she is able to get this information. Pt has 4 brothers: Tomasz, Yoni (who pt lives with), and 2 other brothers. Pt also has a niece, Janet (Tomasz and Mónica's daughter). Per July, pt lives w/her brother Yoni, and her daughter, Thu Loaiza. July states I do everything for them, stating she does the grocery shopping, bills, and everything. She states pt's brother has been doing the best he can to take care of pt, but he is overwhelmed. Both Tomasz and Mónica got on the phone at the same time. They both state they wish for pt to go to a SNF @ discharge. They do not have a preference of location. Abi PEREZ, notified of all of the above. Laurel RAMESHN RN CM
[2020-11-25] MEDS: Enoxaparin 80 MG/0.8 ML Syringe SC ×2 (11:08→23:05)
[2020-11-25 11:16] LABS: Bedside Glucose 83 mg/dL (70-110)
[2020-11-25 11:23] LABS: Troponin-I HS 1768.8 pg/mL (3.0-53.7)
[2020-11-25] MEDS: Menthol/Lanolin/Calamine/Znox 113 GM Tube 1 APPLIC TOPICAL ×2 (12:33→23:05)
[2020-11-25] MEDS: Nystatin Powder 15gm Bottle 1 APPLIC TOPICAL ×2 (12:33→23:06)
--- NOTE | 2020-11-25 13:20 | PCM.HOSP.N ---
Hospitalist Note Ms. Friedman is a 65-year-old female who was admitted through the emergency department early this morning after presenting secondary to confusion. Her history in the emergency department was evidently obtained by her brother. It is noted that there had been a progressive decline over the last month or more and she did lost the energy/ability to walk on her own and for at least the last week she has needed increased amounts of help for IADLs and ADLs. Her family reported that she was drinking well and having no urinary difficulties. She has had issues with her vision that have been ongoing. She admitted to being weak but had no specific complaints. She has a history of coronary artery disease and persistent tobacco abuse with suspected COPD but does not follow-up regularly with a physician and takes no medications. On admission she was noted to have multiple bilateral lower extremity wounds that were concerning for cellulitis. Her her white count was normal and she had a mild anemia upon presentation. She was mildly hypokalemic this morning which has been addressed with p.o. potassium. Her renal function is normal. She had mild lactic acid elevation at 2.1 on admission. Her initial troponin was elevated at 75.2 and was cycled with the most recent troponin being 1768.8. Based on this elevation I started full dose Lovenox, aspirin, beta-getachew, statin, and an echocardiogram was obtained. Her echocardiogram which was performed earlier today shows an EF of 15% with severe segmental systolic dysfunction, moderate global right ventricular dysfunction with a mildly dilated RV, mild to moderate mitral valve insufficiency, severe tricuspid valve insufficiency with a right ventricular systolic pressure of 43 mmHg, moderate aortic stenosis, and mild biatrial enlargement. We have no previous echocardiograms to compare. She does have a history of CABG remotely. Cardiology has been consulted. Their evaluation is pending. I suspect she will need further cardiac work-up in the form of cardiac catheterization. Given her decline and her poor EF, I will consult palliative care. Diagnoses: Bilateral lower extremity cellulitis NSTEMI Ischemic cardiomyopathy/HFrEF-compensated History of CAD Suspected COPD Tobacco abuse Hypokalemia Anemia Debility Failure to thrive Lactic acidosis
--- NOTE | 2020-11-25 14:21 | CASEMGMT ---
Addendum entered by Abi Cosby 11/25/20 14:44: ANA received call from Jan with APS stating she has already been out to see pt and encouraged pt to come to ED due to pt's wounds. Jan asked just to remain updated on discharge for pt and she will continue to follow her. Original Note: Social Work Note ANA placed a call to pt's son Sky ([phone]) to discuss discharge plans. ANA introduced self and role at [facility] at Sky. Sky confirms he is pt's son and states he is 49 years old. Sky states he does have a sister named Thu Loaiza but she has Cerebral Palsy and unable to make decisions for pt. ANA explained HCPOA to Sky. Sky states he is aware he is pt's HCPOA and Mónica, pt's ZEKE, has already spoken to Sky about pt going to SNF. Sky is agreeable to SNF placement for pt. Sky was verbally provided a list of SNF providers including quality and resource use data and consistent with the patient?s preferred geographic region, medical needs, and insurance network. Sky states he is leaning towards [facility] as he knows where that is located at but asked this worker to call Mónica pt's ZEKE to discuss SNF options. ANA informed Sky that this worker will call Mónica and then call him back. Sky states understanding. ANA placed a call to pt's ZEKE Mónica to discuss SNF per Sky's request. Mónica was verbally provided a list of SNF providers including quality and resource use data and consistent with the patient?s preferred geographic region, medical needs, and insurance network. Mónica is also agreeable to [facility]. ANA explained referral process and that pt will need pre-cert. Pt will be at [facility] through the weekend. Mónica states understanding. ANA placed a call back to pt's son Sky and left message that Mónica is agreeable to [facility] and referral will be sent. ANA placed a call to [facility] and spoke with Tyesha in admissions and provided referral. ANA informed Tyesha that PT/OT notes are not available yet, not sure when they will be available, will fax when available. ANA did place a call to Jan at [facility] and provided APS referral due to reports of pt arriving to ED covered in dirt and possible feces. Plan: [facility] pending acceptance and pre-cert Abi KAPLAN, [employer]
--- NOTE | 2020-11-25 14:50 | CON.PCM.ID_ITS ---
Assessment & Plan Assessment/Plan (1) Sepsis: QUALIFIERS: Sepsis type: sepsis due to unspecified organism Sepsis acute organ dysfunction status: without acute organ dysfunction Qualified Code(s): A41.9 - Sepsis, unspecified organism PLAN: leg cellulits, wound cx pending, mssa pcr (+). On vanc/zosyn while cxs pending. Will follow, thank you HPI Consult Data Date of Consult: 11/25/20 HPI Narrative HPI Narrative: NEMESIO SONG, is a 65 F presented to ED with confusion, weakness, BLE redness and wounds. Admitted on vanc/zosyn to icu. No fever, no pain. Limited ability to obtain history and ROS due to mental status. [facility] Medical History Diabetes mellitus type 2 in obese Hypertension Home Medications NK 11/24/20 [History Last Taken Unknown] Allergy/AdvReac Type Severity Reaction Status Date / Time No Known Allergies Allergy Verified 11/24/20 21:32 Surgical History History of coronary artery bypass graft Social History Smoking Status: Current some day smoker tobacco type: cigarettes alcohol intake: current alcohol intake frequency: holidays/special occasions only substance use type: does not use Physical Exam Const no apparent distress General Appearance: lethargic Exam Limitations: altered mental status HEENT head/scalp atraumatic Eyes PERRL Neck supple and No nodes Resp normal air movement and clear to auscultation bilaterally Cardio regular rate and regular rhythm GI normal to inspection, nondistended, normoactive bowel sounds Extremity no clubbing, cyanosis or edema Skin Skin Narrative: BLE lower leg redness, shallow wounds Neuro CN's II-XII intact bilaterally Medical Records Data Medical Nutrition Assessment Dietitian: Nutrition Therapy Diagnosis Start: 11/25/20 10:23 Freq: Status: Active Protocol: Document 11/25/20 10:38 AG (Rec: 11/25/20 10:39 AG [id number]) Nutrition Malnutrition Evidence of Malnutrition Exists No Intake Problem Inadequate Oral Intake Etiology r/t altered mental status Signs/Symptoms as evidenced by no PO intake since admission. Status Active Problem Recommendation Dietitian Recommendations/Changes Recommend 1600 calorie controlled diet, consistency/ texture modifications per MANUFACTURING LEADER. Kumar BID for wound healing when diet advanced. Lab / Micro Data Result Diagrams: 11/25/20 05:45 11/25/20 06:20 Labs: Laboratory Results - last 24 hr 11/24/20 00:15: Troponin I High Sens 256.1 H* 11/24/20 21:55: WBC 7.7, RBC 4.20, Hgb 11.8 L, Hct 39.3, MCV 93.6, MCH 28.1, MCHC 30.0 L, RDW Std Deviation 56.4 H, RDW Coeff of [place] 16.7 H, Plt Count 230, MPV 10.1, Immature Gran % (Auto) 0.400, Neut % (Auto) 81.3 H, Lymph % (Auto) 9.4 L, [place] % (Auto) 8.0, Eos % (Auto) 0.4, Baso % (Auto) 0.5, Absolute Neuts (auto) 6.2, Absolute Lymphs (auto) 0.72 L, Nucleated RBC % 0 11/24/20 21:55: Sodium 139, Potassium 3.0 L, Chloride 103, Carbon Dioxide 27.0, Anion Gap 9, BUN 6 L, Creatinine 0.74, Estim Creat Clear Calc 43.18, Est GFR ( MDRD) Af Amer 101, Est GFR (MDRD) Non-Af 84, BUN/Creatinine Ratio 8.2 L, Glucose 124 H, Calcium 8.7, Total Bilirubin 1.70 H, AST 19, ALT 15, Alkaline Phosphatase 99, Troponin I High Sens 75.2 H*, Total Protein 6.9, Albumin 2.9 L, Globulin 4.0, Albumin/Globulin Ratio 0.7 L, TSH 1.70 11/24/20 21:55: Lactic Acid 2.5 H* 11/24/20 22:19: Urine Color Yellow, Urine Clarity Clear, Urine pH 6.0, Ur S pecific [place] 1.010, Urine Protein 30 H, Urine Glucose (UA) Normal, Urine K etones Negative, Urine Occult Blood 25 H, Urine Nitrite Negative, Urine Bilir ubin Negative, Urine Urobilinogen 12 H, Ur Leukocyte Esterase 25 H, Urine RBC 0 SEEN, Urine WBC 5-10 SEEN, Ur Squamous Epith Cells 0-5 SEEN, Urine Bacteria 3+, Urine Mucus 0 SEEN 11/25/20 00:15: Magnesium 1.7 11/25/20 00:15: Total Creatine Kinase 99 11/25/20 02:10: S.aureus Protein A PCR POSITIVE H, MRSA (PCR) Negative 11/25/20 03:25: Lactic Acid 2.1 H* 11/25/20 03:25: PT 17.9 H, INR 1.6, APTT 33.5 11/25/20 05:13: WBC Cancelled, Corrected WBC Cancelled, RBC Cancelled, Hgb Cancelled, Hct Cancelled, MCV Cancelled, MCH Cancelled, MCHC Cancelled, RDW Std Deviation Cancelled, RDW Coeff of [place] Cancelled, Plt Count Cancelled, MPV Cancelled, Immature Gran % (Auto) Cancelled, Neut % (Auto) Cancelled, Lymph % (Auto) Cancelled, [place] % (Auto) Cancelled, Eos % (Auto) Cancelled, Baso % (Auto) Cancelled, Absolute Neuts (auto) Cancelled, Absolute Lymphs (auto) Cancelled, Total Counted Cancelled, Neutrophils % (Manual) Cancelled, Band Neutrophils % C ancelled, Lymphocytes % (Manual) Cancelled, Monocytes % (Manual) Cancelled, Eosinophils % (Manual) Cancelled, Basophils % (Manual) Cancelled, Metamyelocytes % Cancelled, Myelocytes % Cancelled, Promyelocytes % Cancelled, Blast Cells % Cancelled, Plasma Cell % (Manual) Cancelled, Other Cells % Cancelled, Nucleated RBC % Cancelled, Nucleated RBCs/100 WBC Cancelled, Differential Comment Cancelled, Diff Path Review Cancelled, Hypersegmented Neuts Cancelled, Atypical Lymphocytes Cancelled, Reactive Lymphocytes Cancelled, Smudge Cells Cancelled, Toxic Granulation Cancelled, Toxic Vacuolation Cancelled, Dohle Bodies Cancelled, Sosa Rods Cancelled, Platelet Estimate Cancelled, Plt Morphology Comment Cancelled, RBC Morphology Cancelled, Polychromasia Cancelled, Hypochromasia Cancelled, Poikilocytosis Cancelled, Basophilic Stippling Cancelled, Anisocytosis Cancelled, Microcytosis Cancelled, Macrocytosis Cancelled, Spherocytes Cancelled, Sickle Cells Cancelled, Target Cells Cancelled, Tear Drop Cells Cancelled, Ovalocytes Cancelled, Stomatocytes Cancelled, [place] Bodies Cancelled, Christina Cells Cancelled, Bite Cells Cancelled, Crenated Cell Cancelled, Acanthocytes (Spur) Cancelled, Rouleaux Cancelled, Schistocytes Cancelled 11/25/20 05:13: Sodium Cancelled, Potassium Cancelled, Chloride Cancelled, Carbon Dioxide Cancelled, Anion Gap Cancelled, BUN Cancelled, Creatinine Cancelled, Estim Creat Clear Calc Cancelled, Est GFR (MDRD) Af Amer Cancelled, Est GFR (MDRD) Non-Af Cancelled, BUN/Creatinine Ratio Cancelled, Glucose Cancelled, Calcium Cancelled, TSH Cancelled 11/25/20 05:13: Troponin I High Sens Cancelled 11/25/20 05:45: WBC 6.2, RBC 3.88 L, Hgb 10.7 L, Hct 36.1 L, MCV 93.0, MCH 27.6, MCHC 29.6 L, RDW Std Deviation 56.6 H, RDW Coeff of [place] 16.7 H, Plt Count 181, MPV 9.5, Immature Gran % (Auto) 0.200, Neut % (Auto) 69.8, Lymph % (Auto) 17.4 L , [place] % (Auto) 11.6 H, Eos % (Auto) 0.5, Baso % (Auto) 0.5, Absolute Neuts (aut o) 4.4, Absolute Lymphs (auto) 1.08, Nucleated RBC % 0 11/25/20 06:20: Sodium 142, Potassium 3.4 L, Chloride 110 H, Carbon Dioxide 27.0, Anion Gap 5, BUN 6 L, Creatinine 0.56, Estim Creat Clear Calc 43.18, Est GFR (MDRD) Af Amer 138, Est GFR (MDRD) Non-Af 114, BUN/Creatinine Ratio 10.7, Glucose 100, Calcium 7.8 L, Troponin I High Sens 1446.4 H*, TSH 1.72 11/25/20 11:00: Troponin I High Sens 1768.8 H* 11/25/20 11:07: POC Glucose 83 Micro: Microbiology 11/24/20 22:30 Mucosa - Nose SARS-CoV-2 Antigen (Rapid) - Final Radiology Impression Brain CT 11/24/20 22:18 IMPRESSION: No acute intracranial abnormality. Electronically Signed: Mookie Mauricio MD at 23:17 EDT Tel , Service support , Chest X-Ray 11/24/20 23:12 IMPRESSION: Normal x-ray examination of the chest. Electronically Signed: Micaela Maradiaga MD at 23:46 EDT Tel , Service support , Tibia/Fibula X-Ray 11/24/20 23:12 IMPRESSION: Normal x-ray examination of the tibia and fibula. Electronically Signed: Micaela Maradiaga MD at 23:46 EDT Tel , Service support , Echocardiogram 11/25/20 07:11 Interpretation Summary The study was technically difficult. Contrast injection was performed. Severe segmental systolic dysfunction (see wall motion). The estimated ejection fraction is 15 %. Moderate concentric left ventricular hypertrophy. Mildly dilated right ventricle. Moderate global right ventricular systolic dysfunction. The left atrium is mildly enlarged. The right atrium is mildly enlarged. There is moderate mitral annular calcification. Extension of the mitral annular calcification onto the base of the posterior mitral valve leaflet. Anterior leaflet diffuse mitral valve thickening. Mild-Moderate (1-2+) mitral valve insufficiency. Poor coaptation of the tricuspid valve apparatus. Moderately severe (3+) tricuspid valve insufficiency. Moderate aortic stenosis. Echo lucency compatible with a pleural effusion. Right ventricular systolic pressure estimated to be 43 mmHg. Transmitral diastolic flow velocities suggest diastolic dysfunction (pseudonormal pattern). Ordering Physician: Yoselyn Araujo Referring Physician: No PCP Performed By: Torin Nunez, SALEEM
--- NOTE | 2020-11-25 15:48 | CON.PCM.CA_ITS ---
Documented by User: Anay MARLEY PA 11/25/20 16:39 Assessment & Plan Assessment/Plan (1) Elevated troponin: PLAN: -pt is not able to make her own medical decisions, will need to discuss further with family on how they would like to proceed. -If the wish to be aggressive would then consider pursuing heart cath (2) Cardiomyopathy, ischemic: PLAN: -do not have old echo to compare too -for now recommend medical therapy with Metoprolol, possibly adding an NOE-I (3) CAD (coronary artery disease): PLAN: -Recommend continuation of her ASA, Metoprolol HPI Consult Data Date of Consult: 11/25/20 HPI Narrative HPI Narrative: NEMESIO SONG, is a 65 F who presented to the emergency room on 11/24/2020 for increased confusion. Family noted that patient has been declining for the last month or more. Apparently Adult Protective Services was consulted due to concerns over her being too weak to take care of herself. She came into the hospital for further evaluation as it was felt that she could not care for herself at home. It was felt that she did have cellulitis of her right lower extremity, sepsis criteria was not met. She does have an abnormal EKG, this demonstrated sinus rhythm with suspected LVH prior septal infarct, diffuse ST and T wave changes. EKG was similar to previous. Troponins were noted to be elevated. She does have a history of coronary artery disease with bypass surgery in the past, tobacco acute abuse with suspected COPD. It is noted that she does not follow with a physician regularly and does not take any medications. With her elevated troponin she was started on aspirin, beta-getachew, statin. Echocardiogram demonstrated an ejection fraction of 15% with severe segmental systolic dysfunction, moderate global right ventricular dysfunction with mildly dilated RV, mild to moderate mitral valve insufficiency, severe tricuspid valve insufficiency with an RVSP of 43 mmHg, moderate aortic stenosis, mild biatrial enlargement. No previous echocardiogram to compare to. Blood pressures have been noted to be elevated. [facility] Medical History (Updated 11/25/20 @ 16:14 by Anay MARLEY, PA) CAD (coronary artery disease) Cardiomyopathy, ischemic Diabetes mellitus type 2 in obese Hypertension Home Medications NK 11/24/20 [History Last Taken Unknown] Allergy/AdvReac Type Severity Reaction Status Date / Time No Known Allergies Allergy Verified 11/24/20 21:32 Surgical History History of coronary artery bypass graft Social History Smoking Status: Current some day smoker tobacco type: cigarettes alcohol intake: current alcohol intake frequency: holidays/special occasions only substance use type: does not use ROS ROS Narrative Difficult to obtain ROS d/t mental status. She is oriented to person and place. She notes that she stopped taking all of her medications d/t cost and has not seen a doctor in a long time. She notes that she lives with her brother who takes care of her. Physical Exam Const Constitutional Narrative: Alert at times, she is orientated to person and place. Ill in appearance and unkempt Orientation / Consciousness: confused HEENT normocephalic and head/scalp atraumatic Mouth: other Other Details: dry mucous membranes, poor fitting dentures that are missing teeth Eyes PERRL and EOMs intact bilaterally Neck General: normal visual inspection and trachea midline Carotids: Negative for bruit Resp Effort and Inspection: tachypneic, labored and uses accessory muscles Auscultation: crackles bilateral throughout and diminished lung sounds bilateral throughout Cardio Rate: regular rate Rhythm: regular rhythm Heart Sounds: S1 normal, S2 normal and murmur systolic IV/ harsh GI normal to inspection, nondistended, normoactive bowel sounds and soft to palpation Extremity Extremity Narrative: No edema, multiple wounds noted on lower extremities. Objective Data Vital Signs: Vital Signs Temp Pulse Resp BP Pulse Ox 96.8 F L 81 14 169/75 H 97 11/25/20 14:19 11/25/20 14:54 11/25/20 14:19 11/25/20 14:19 11/25/20 14:19 Oxygen Delivery Method Room Air Weight: 171 lb 11.841 oz Body Mass Index (BMI) 31.4 Intake & Output: Intake and Output for Last 24 Hours 11/23/20 11/24/20 11/25/20 23:59 23:59 23:59 Intake Total 1000 / 1000 2546 / 2546 Output Total 300 / 300 Balance 1000 / 1000 2246 / 2246 Lab / Micro Data Result Diagrams: 11/25/20 05:45 11/25/20 06:20 Labs: Laboratory Results - last 24 hr 11/24/20 00:15: Troponin I High Sens 256.1 H* 11/24/20 21:55: WBC 7.7, RBC 4.20, Hgb 11.8 L, Hct 39.3, MCV 93.6, MCH 28.1, MCHC 30.0 L, RDW Std Deviation 56.4 H, RDW Coeff of [place] 16.7 H, Plt Count 230, MPV 10.1, Immature Gran % (Auto) 0.400, Neut % (Auto) 81.3 H, Lymph % (Auto) 9.4 L, [place] % (Auto) 8.0, Eos % (Auto) 0.4, Baso % (Auto) 0.5, Absolute Neuts (auto) 6.2, Absolute Lymphs (auto) 0.72 L, Nucleated RBC % 0 11/24/20 21:55: Sodium 139, Potassium 3.0 L, Chloride 103, Carbon Dioxide 27.0, Anion Gap 9, BUN 6 L, Creatinine 0.74, Estim Creat Clear Calc 43.18, Est GFR (MDRD) Af Amer 101, Est GFR (MDRD) Non-Af 84, BUN/Creatinine Ratio 8.2 L, G lucose 124 H, Calcium 8.7, Total Bilirubin 1.70 H, AST 19, ALT 15, Alkaline Phosphatase 99, Troponin I High Sens 75.2 H*, Total Protein 6.9, Albumin 2.9 L, Globulin 4.0, Albumin/Globulin Ratio 0.7 L, TSH 1.70 11/24/20 21:55: Lactic Acid 2.5 H* 11/24/20 22:19: Urine Color Yellow, Urine Clarity Clear, Urine pH 6.0, Ur Specific [place] 1.010, Urine Protein 30 H, Urine Glucose (UA) Normal, Urine Ketones Negative, Urine Occult Blood 25 H, Urine Nitrite Negative, Urine Bilirubin Negative, Urine Urobilinogen 12 H, Ur Leukocyte Esterase 25 H, Urine RBC 0 SEEN, Urine WBC 5-10 SEEN, Ur Squamous Epith Cells 0-5 SEEN, Urine Bacteria 3+, Urine Mucus 0 SEEN 11/25/20 00:15: Magnesium 1.7 11/25/20 00:15: Total Creatine Kinase 99 11/25/20 02:10: S.aureus Protein A PCR POSITIVE H, MRSA (PCR) Negative 11/25/20 03:25: Lactic Acid 2.1 H* 11/25/20 03:25: PT 17.9 H, INR 1.6, APTT 33.5 11/25/20 05:13: WBC Cancelled, Corrected WBC Cancelled, RBC Cancelled, Hgb Cancelled, Hct Cancelled, MCV Cancelled, MCH Cancelled, MCHC Cancelled, RDW Std Deviation Cancelled, RDW Coeff of [place] Cancelled, Plt Count Cancelled, MPV Cancelled, Immature Gran % (Auto) Cancelled, Neut % (Auto) Cancelled, Lymph % (Auto) Cancelled, [place] % (Auto) Cancelled, Eos % (Auto) Cancelled, Baso % (Auto) Cancelled, Absolute Neuts (auto) Cancelled, Absolute Lymphs (auto) Cancelled, Total Counted Cancelled, Neutrophils % (Manual) Cancelled, Band Neutrophils % Cancelled, Lymphocytes % (Manual) Cancelled, Monocytes % (Manual) Cancelled, Eosinophils % (Manual) Cancelled, Basophils % (Manual) Cancelled, Metamyelocytes % Cancelled, Myelocytes % Cancelled, Promyelocytes % Cancelled, Blast Cells % Cancelled, Plasma Cell % (Manual) Cancelled, Other Cells % Cancelled, Nucleated RBC % Cancelled, Nucleated RBCs/100 WBC Cancelled, Differential Comment Cancelled, Diff Path Review Cancelled, Hypersegmented Neuts Cancelled, Atypical Lymphocytes Cancelled, Reactive Lymphocytes Cancelled, Smudge Cells Cancelled, Toxic Granulation Cancelled, Toxic Vacuolation Cancelled, Dohle Bodies Cancelled, Sosa Rods Cancelled, Platelet Estimate Cancelled, Plt Morphology Comment Cancelled, RBC Morphology Cancelled, Polychromasia Cancelled, Hypochromasia Cancelled, Poikilocytosis Cancelled, Basophilic Stippling Cancelled, Anisocytosis Cancelled, Microcytosis Cancelled, Macrocytosis Ca ncelled, Spherocytes Cancelled, Sickle Cells Cancelled, Target Cells Cancelled, Tear Drop Cells Cancelled, Ovalocytes Cancelled, Stomatocytes Cancelled, [place] Bodies Cancelled, Christina Cells Cancelled, Bite Cells Cancelled, Crenated Cell Cancelled, Acanthocytes (Spur) Cancelled, Rouleaux Cancelled, Schistocytes Cancelled 11/25/20 05:13: Sodium Cancelled, Potassium Cancelled, Chloride Cancelled, Carbon Dioxide Cancelled, Anion Gap Cancelled, BUN Cancelled, Creatinine Ca ncelled, Estim Creat Clear Calc Cancelled, Est GFR (MDRD) Af Amer Cancelled, Est GFR (MDRD) Non-Af Cancelled, BUN/Creatinine Ratio Cancelled, Glucose Cancelled, Calcium Cancelled, TSH Cancelled 11/25/20 05:13: Troponin I High Sens Cancelled 11/25/20 05:45: WBC 6.2, RBC 3.88 L, Hgb 10.7 L, Hct 36.1 L, MCV 93.0, MCH 27.6, MCHC 29.6 L, RDW Std Deviation 56.6 H, RDW Coeff of [place] 16.7 H, Plt Count 181, MPV 9.5, Immature Gran % (Auto) 0.200, Neut % (Auto) 69.8, Lymph % (Auto) 17.4 L , [place] % (Auto) 11.6 H, Eos % (Auto) 0.5, Baso % (Auto) 0.5, Absolute Neuts (auto) 4.4, Absolute Lymphs (auto) 1.08, Nucleated RBC % 0 11/25/20 06:20: Sodium 142, Potassium 3.4 L, Chloride 110 H, Carbon Dioxide 27.0, Anion Gap 5, BUN 6 L, Creatinine 0.56, Estim Creat Clear Calc 43.18, Est GFR (MDRD) Af Amer 138, Est GFR (MDRD) Non-Af 114, BUN/Creatinine Ratio 10.7, Glucose 100, Calcium 7.8 L, Troponin I High Sens 1446.4 H*, TSH 1.72 11/25/20 11:00: Troponin I High Sens 1768.8 H* 11/25/20 11:07: POC Glucose 83 Micro: Microbiology 11/25/20 02:10 Lesion - Leg Gram Stain - Final 11/24/20 22:30 Mucosa - Nose SARS-CoV-2 Antigen (Rapid) - Final Cardiology Labs/Tests 11/24/20 21:55: WBC 7.7, RBC 4.20, Hgb 11.8 L, Hct 39.3, MCV 93.6, MCH 28.1, MCHC 30.0 L, Plt Count 230, MPV 10.1, Immature Gran % (Auto) 0.400, Neut % (Auto) 81.3 H, Lymph % (Auto) 9.4 L, [place] % (Auto) 8.0, Eos % (Auto) 0.4, Baso % (Auto) 0.5, Absolute Neuts (auto) 6.2, Nucleated RBC % 0 11/24/20 21:55: Sodium 139, Potassium 3.0 L, Chloride 103, Carbon Dioxide 27.0, Anion Gap 9, BUN 6 L, Creatinine 0.74, Est GFR (MDRD) Af Amer 101, Est GFR (MDRD) Non-Af 84, BUN/Creatinine Ratio 8.2 L, Glucose 124 H, Calcium 8.7, Total Bilirubin 1.70 H 11/24/20 21:55: Lactic Acid 2.5 H* 11/24/20 22:19: Urine Color Yellow, Urine Clarity Clear, Urine pH 6.0, Ur Specific [place] 1.010, Urine Protein 30 H, Urine Glucose (UA) Normal, Urine Ketones Negative, Urine Occult Blood 25 H, Urine Nitrite Negative, Urine Bilirubin Negative, Urine Urobilinogen 12 H, Ur Leukocyte Esterase 25 H, Urine RBC 0 SEEN, Urine WBC 5-10 SEEN 11/25/20 00:15: Magnesium 1.7 11/25/20 03:25: Lactic Acid 2.1 H* 11/25/20 03:25: PT 17.9 H, INR 1.6, APTT 33.5 11/25/20 05:13: WBC Cancelled, Corrected WBC Cancelled, RBC Cancelled, Hgb Cancelled, Hct Cancelled, MCV Cancelled, MCH Cancelled, MCHC Cancelled, Plt Count Cancelled, MPV Cancelled, Immature Gran % (Auto) Cancelled, Neut % (Auto) Cancelled, Lymph % (Auto) Cancelled, [place] % (Auto) Cancelled, Eos % (Auto) Cancelled, Baso % (Auto) Cancelled, Absolute Neuts (auto) Cancelled, Total Counted Cancelled, Neutrophils % (Manual) Cancelled, Band Neutrophils % Cancelled, Lymphocytes % (Manual) Cancelled, Monocytes % (Manual) Cancelled, Eosinophils % (Manual) Cancelled, Basophils % (Manual) Cancelled, Metamyelocytes % Cancelled, Myelocytes % Cancelled, Promyelocytes % Cancelled, Blast Cells % Cancelled, Plasma Cell % (Manual) Cancelled, Other Cells % Cancelled, Nucleated RBC % Cancelled 11/25/20 05:13: Sodium Cancelled, Potassium Cancelled, Chloride Cancelled, Carbon Dioxide Cancelled, Anion Gap Cancelled, BUN Cancelled, Creatinine Cancelled, Est GFR (MDRD) Af Amer Cancelled, Est GFR (MDRD) Non-Af Cancelled, BUN/Creatinine Ratio Cancelled, Glucose Cancelled, Calcium Cancelled 11/25/20 05:45: WBC 6.2, RBC 3.88 L, Hgb 10.7 L, Hct 36.1 L, MCV 93.0, MCH 27.6, MCHC 29.6 L, Plt Count 181, MPV 9.5, Immature Gran % (Auto) 0.200, Neut % (Auto) 69.8, Lymph % (Auto) 17.4 L, [place] % (Auto) 11.6 H, Eos % (Auto) 0.5, Baso % (Auto) 0.5, Absolute Neuts (auto) 4.4, Nucleated RBC % 0 11/25/20 06:20: Sodium 142, Potassium 3.4 L, Chloride 110 H, Carbon Dioxide 2 7.0, Anion Gap 5, BUN 6 L, Creatinine 0.56, Est GFR (MDRD) Af Amer 138, Est GFR (MDRD) Non-Af 114, BUN/Creatinine Ratio 10.7, Glucose 100, Calcium 7.8 L Rhythm: EKG: ECHO: 11/25/2020: Severe segmental systolic dysfunction (see wall motion). The estimated ejection fraction is 15 %. Moderate concentric left ventricular hypertrophy. Mildly dilated right ventricle. Moderate global right ventricular systolic dysfunction. The left atrium is mildly enlarged. The right atrium is mildly enlarged. There is moderate mitral annular calcification. Extension of the mitral annular calcification onto the base of the posterior mitral valve leaflet. Anterior leaflet diffuse mitral valve thickening. Mild-Moderate (1-2+) mitral valve insufficiency. Poor coaptation of the tricuspid valve apparatus. Moderately severe (3+) tricuspid valve insufficiency. Moderate aortic stenosis. Echo lucency compatible with a pleural effusion. Right ventricular systolic pressure estimated to be 43 mmHg. Transmitral diastolic flow velocities suggest diastolic dysfunction (pseudonormal pattern). Stress Test: Cardiac Cath: PCI: CT Surgery: Holter monitor: EPS: PPM: CXR: Chest CT Scan: Radiography Diagnostic Testing: Radiology Impression Brain CT 11/24/20 22:18 IMPRESSION: No acute intracranial abnormality. Electronically Signed: Mookie Mauricio MD at 23:17 EDT Tel , Service support , Chest X-Ray 11/24/20 23:12 IMPRESSION: Normal x-ray examination of the chest. Electronically Signed: Micaela Maradiaga MD at 23:46 EDT Tel , Service support , Tibia/Fibula X-Ray 11/24/20 23:12 IMPRESSION: Normal x-ray examination of the tibia and fibula. Electronically Signed: Micaela Maradiaga MD at 23:46 EDT Tel , Service support , Echocardiogram 11/25/20 07:11 Interpretation Summary The study was technically difficult. Contrast injection was performed. Severe segmental systolic dysfunction (see wall motion). The estimated ejection fraction is 15 %. Moderate concentric left ventricular hypertrophy. Mildly dilated right ventricle. Moderate global right ventricular systolic dysfunction. The left atrium is mildly enlarged. The right atrium is mildly enlarged. There is moderate mitral annular calcification. Extension of the mitral annular calcification onto the base of the posterior mitral valve leaflet. Anterior leaflet diffuse mitral valve thickening. Mild-Moderate (1-2+) mitral valve insufficiency. Poor coaptation of the tricuspid valve apparatus. Moderately severe (3+) tricuspid valve insufficiency. Moderate aortic stenosis. Echo lucency compatible with a pleural effusion. Right ventricular systolic pressure estimated to be 43 mmHg. Transmitral diastolic flow velocities suggest diastolic dysfunction (pseudonormal pattern). Ordering Physician: Yoselyn Araujo Referring Physician: Abimbola PCP Performed By: Torin Nunez RCS Documented by User: Dr. Raymond Hendricks MD 11/25/20 20:20 Assessment & Plan Addt'l Comments The patient was independently evaluated/examined. At the present time the patient does not appear to be able to give any coherent cardiovascular history. Her cardiovascular evaluation demonstrates a regular rhythm with normal S1 and S2. Her lungs demonstrate diminished inspiratory effort. Her cardiac labs/enzymes were reviewed. Her ECG is demonstrated sinus rhythm with a septal NV of indeterminate age and ST and T wave changes potentially compatible with myocardial ischemia in the anterior, lateral, and inferior distributions. Her transthoracic echocardiogram from today is as noted below. Interpretation Summary The study was technically difficult. Contrast injection was performed. Severe segmental systolic dysfunction (see wall motion). The estimated ejection fraction is 15 %. Moderate concentric left ventricular hypertrophy. Mildly dilated right ventricle. Moderate global right ventricular systolic dysfunction. The left atrium is mildly enlarged. The right atrium is mildly enlarged. There is moderate mitral annular calcification. Extension of the mitral annular calcification onto the base of the posterior mitral valve leaflet. Anterior leaflet diffuse mitral valve thickening. Mild-Moderate (1-2+) mitral valve insufficiency. Poor coaptation of the tricuspid valve apparatus. Moderately severe (3+) tricuspid valve insufficiency. Moderate aortic stenosis. Echo lucency compatible with a pleural effusion. Right ventricular systolic pressure estimated to be 43 mmHg. Transmitral diastolic flow velocities suggest diastolic dysfunction (pseudonormal pattern). At the present time the patient does appear to have findings compatible with a non-ST segment elevation NV. It is unclear at this time whether this is a primary event versus a type II event. The patient does have an underlying history of CAD and is status post CABG. The details of her CAD history and her CABG history are unknown at this time. At the present time she will continue medical management as best as possible. An attempt will be made to retrieve previous medical records for continuity of care. It would be challenging at this time to proceed with further evaluation such as diagnostic cardiac catheterization with the patient not being coherent and not being able to follow or cooperate with instructions (as she is currently been no mayra to be pulling on her IV tubes/attempting to remove them). Thus she may end up being delegated to continued conservative medical management. The patient's case was discussed and reviewed with AYAKA Messer. This note was generated using a voice recognition system and there may be inco rrect words, spelling or punctuation that were not noted when reviewing the office note prior to saving. HPI Consult Data Date of Consult: 11/25/20 [facility] Medical History (Updated 11/25/20 @ 16:14 by Anay MARLEY, PA) CAD (coronary artery disease) Cardiomyopathy, ischemic Diabetes mellitus type 2 in obese Hypertension Home Medications NK 11/24/20 [History Last Taken Unknown] Allergy/AdvReac Type Severity Reaction Status Date / Time No Known Allergies Allergy Verified 11/24/20 21:32 Surgical History History of coronary artery bypass graft Social History Smoking Status: Current some day smoker tobacco type: cigarettes alcohol intake: current alcohol intake frequency: holidays/special occasions only substance use type: does not use Lab / Micro Data Result Diagrams: 11/25/20 05:45 11/25/20 06:20
[2020-11-25] MEDS: 0.9% Saline Lock 10 ML Syringe IV (16:30)
[2020-11-25 17:55] LABS: Bedside Glucose 95 mg/dL (70-110)
[2020-11-25] MEDS: MELATONIN 3 MG TABLET PO (22:34)
[2020-11-25] MEDS: Metoprolol Tartrate 25 MG Tablet PO (23:03)
[2020-11-25] MEDS: Atorvastatin Calcium 80 MG Tablet PO (23:03)
[2020-11-25 23:16] LABS: Bedside Glucose 149 mg/dL (70-110)
[2020-11-26 03:06] VITALS: PULSE 64
[2020-11-26 03:30] VITALS: RESP 20; O2SAT 80
[2020-11-26 04:44] VITALS: BP 145/65; PULSE 70; RESP 24; TEMP 36.8; O2SAT 97
[2020-11-26 05:14] VITALS: PULSE 76
[2020-11-26 06:40] VITALS: PULSE 79
[2020-11-26 07:21] LABS: Bedside Glucose 84 mg/dL (70-110)
--- NOTE | 2020-11-26 08:15 | NURSING ---
Pt's brother, Leif and his , Christine called this AM for an update from this RN. Family had many questions that this RN felt would be more approriate for MD. Dr. Araujo sent a core text at 8:15 with family name and number to update
[2020-11-26 08:46] LABS: Bedside Glucose 110 mg/dL (70-110)
[2020-11-26 10:15] VITALS: PULSE 0
--- NOTE | 2020-11-26 10:28 | EXP.PCM_ITS ---
Preliminary Cause of Preliminary Cause of Preliminary Cause of : Ischemic cardiomyopathy Date of Admission: 11/25/20 Principle Diagnosis Problem List: Active and Suspected Problems (Updated 11/25/20 @ 16:14 by Anay MARLEY, PA) Cardiomyopathy, ischemic (Acute) CAD (coronary artery disease) (Acute) Sepsis (Acute) Debility (Acute) Cellulitis of leg, right (Acute) Elevated troponin (Acute) Inability to ambulate due to multiple joints (Acute) Hospital Course Mrs. Friedman is a 65-year-old female who presented from home to the emergency department at [facility] on 11/25/2020 with concerns by the family for confusion, debility, and increasing weakness. On admission they reported that she had been having difficulty over the last 2 months and on the day of admission she was talking to her parents who had been for years. On admission she was only alert to self and unable to give any meaningful history. She had a CABG approximately 15 years ago and had not been taking any medications for a significant amount of time. She still was smoking tobacco on a regular basis. And did not participate in medical care regularly. Per family she was still eating and drinking okay. She was unkempt on arrival. Her CBC was overall unremarkable other than a mild anemia with a hemoglobin of 11.8. Her BMP showed mild hypokalemia with a potassium of 3.0. Her renal function was normal. She had a mildly elevated lactic acid at 2.5 that trended down. Her bilirubin was 1.7 but her AST and ALT were within normal limits. Her CK was normal. Initial troponin was 75.2 but trended steadily upward with a maximal troponin of 1768.8. An echocardiogram was obtained and showed an ejection fraction of 15% with severe segmental systolic dysfunction, stage II diastolic dysfunction, moderate concentric LVH, mildly dilated RV, moderate global right ventricular systolic dysfunction, mild biatrial enlargement, mild to moderate mitral valve insufficiency, moderately severe tricuspid valve insufficiency, moderate aortic stenosis, and a right ventricular systolic pressure 43 mmHg. She was evaluated by cardiology with the intent to take her to the Manufacturing Quality Inspector once her mentation improved and she was able to cooperate and not demonstrate agitation so the intervention could be done safely. We placed her on therapeutic Lovenox for NSTEMI and started a statin, low-dose lisinopril, metoprolol, and aspirin for goal-directed therapy in relation to her poor EF. She was also noted on admission to have bilateral extensive lower extremity wounds in various stages of healing. Blood cultures were obtained and she was placed on vancomycin and Zosyn for empiric coverage. On admission discussion with family indicated that she was a DNR CCA with no intubation. On the a.m. of 11/26/2020 and approximately 1010 a rapid response was called secondary to unresponsiveness. The patient was being repositioned in her bed and developed asystole. Given her CODE STATUS no resuscitative efforts were performed and the patient with the time of being 10:14 AM. Her family arrived shortly after and I discussed with her younger brother in July her [id number] the fact that the patient had and the suspected cause of was related to her ischemic cardiomyopathy. I attempted to call her son Sky, who is the DPOA for healthcare, and was unable to contact him. Culture results were still pending upon . Discharge diagnoses: NSTEMI Ischemic cardiomyopathy HFrEF Moderate mitral valve regurgitation Moderate aortic stenosis Severe tricuspid valve insufficiency Bilateral lower extremity cellulitis/wounds History of CAD COPD Ongoing tobacco abuse Hypokalemia Mild anemia Debility Failure to thrive Lactic acidosis-resolved Discharge time greater than 35 minutes Assessment & Plan Assessment/Plan (1) Cardiomyopathy, ischemic: (2) CAD (coronary artery disease): (3) Cellulitis of leg, right: (4) NSTEMI, initial episode of care: Visit Charges Inpatient E&M: 69300 Disch Hosp
--- NOTE | 2020-11-26 10:29 | NURSING ---
Dr. Hendricks notified this RN that he was afraid that pt would fall out of bed as she was positioned perpendicular to bed frame. This RN went into room immediately upon notification and called HEATER WORKER to help reposition. Pt taking deep agonal breaths, O2 placed on pt, staff assist button hit and INSURANCE OFFICE SUPERVISOR called. Unable to obtain VS or pulse. Dr. Araujo in at bedside to pronounce time of . Family entering unit shortly after pt was pronounced and directed to lobby while machine pie maker and RN to clean up pt.
[2020-11-26 12:46] LABS: Bedside Glucose 90 mg/dL (70-110)
--- NOTE | 2020-11-26 18:14 | CM.ED ---
SW Note Referral Source: NIGHT AUDITOR Reason for Referral: NIGHT AUDITOR SW responded to NIGHT AUDITOR and patient had . SW spoke to patient's sister in law and younger brother. SW provided emotional support. Sister in Law said that patient's son works nights and thus may be sleeping during the day and thus not answering the phone. Sister in law reports minimal contact with patient's son. ANA updated Dr. Araujo that patient's son works nights and thus may not be answering phone due to his sleep schedule. Dr. Araujo has attempted to call dyllan's son numerous times, per her report. Sister in law is contacting family members via phone. SW remains available. ANA called Tyesha at [facility] and advised patient had . No [facility] bed needed. Plan: Patient Adelita [place]
== END 2020-11-26 13:25 ==
LOC: ED 11-25 00:30 → ICU 11-25 01:36 → PCU 11-25 15:50
PROVIDERS: Nurse Practitioner Family; Admitting Provider Internal Medicine; Emergency Provider Emergency Medicine; Visit Provider Internal Medicine
DX: I21.4 Non-ST elevation (NSTEMI) myocardial infarction (principal); I50.21 Acute systolic (congestive) heart failure; L03.115 Cellulitis of right lower limb; L03.116 Cellulitis of left lower limb; E87.2 Acidosis; I25.5 Ischemic cardiomyopathy; I11.0 Hypertensive heart disease with heart failure; I08.3 Combined rheumatic disorders of mitral, aortic and tricuspid valves; I25.10 Atherosclerotic heart disease of native coronary artery without angina pectoris; J44.9 Chronic obstructive pulmonary disease, unspecified; E87.6 Hypokalemia; D64.9 Anemia, unspecified; R53.81 Other malaise; R62.7 Adult failure to thrive; F17.210 Nicotine dependence, cigarettes, uncomplicated; Z95.1 Presence of aortocoronary bypass graft; E11.9 Type 2 diabetes mellitus without complications; E66.9 Obesity, unspecified; Z66 Do not resuscitate; Z68.32 Body mass index [BMI] 32.0-32.9, adult
CPT/HCPCS: 70450; 71045; 73590; 80048; 80053; 81001; 82550; 82962; 83605; 83735; 84443; 84484; 85025; 85610; 85730; 87040; 87070; 87077; 87086; 87186; 87205; 87426; 87640; 92610; 93005; 93306; 94640; 97163; 97166; 99251; 99285; 99406; J7030; J7040; J7050; Q9957; A4216; C8929; G0463; J3490